=== PATIENT | female | born 1930 | race Caucasian/White ===

== ENCOUNTER 2017-02-06 06:40 | Emergency (ER) | payer OTHER ==
[~2017-02-06] VITALS: Ht 167.6 cm; Wt 72.6 kg
[2017-02-06 06:40] VITALS: BP 124/55
--- NOTE | 2017-02-06 06:40 | NUR ---
BROUGHT IN BY [facility]ED[facility] FROM [facility] ON FULL ARREST. CPR ON GOING. PLACED IN BED 3. MD AT BEDSIDE TO EVALUATE PT. SEE CODE SHEET.
--- NOTE | 2017-02-06 06:40 | NUR ---
[facility] TO ER BED 3
--- NOTE | 2017-02-06 06:52 | NUR ---
CPR TERMINATED. PT. PRONOUNCED BY . ASYSTOLE ON THE WRAPPER LAYER AND EXAMINER SOFT WORK. SEE CODE SHEET.
--- NOTE | 2017-02-06 07:23 | NUR ---
ENDORSED CARE TO ISABELLA OWENS.
--- NOTE | 2017-02-06 07:26 | NUR ---
REPORTED TO [facility] AND SPOKEN TO [facility], AND TO CALL US BACK.
--- NOTE | 2017-02-06 07:33 | NUR ---
REPORTED TO [facility] AND SPOKEN TO [facility] AND CLOSED THE CASE WITH A CASE #[phone].
--- NOTE | 2017-02-06 07:41 | NUR ---
[facility] CALLED BACK , AND SPOKEN TO DEPUTHardeep REYNA AND SHE RELEASES THE BODY WITH CASE #[id number].
--- NOTE | 2017-02-06 08:25 | NUR ---
SPOKE W/ GRAYSON AT DR. [facility]'S OFFICE; GRAYSON STATED WILL LET THE DR KNOW ABOUT PT'S STATUS.
--- NOTE | 2017-02-06 08:40 | NUR ---
SPOKE WITH DAUGHTER MARIANN, [facility] WILL CALL [facility] TO RELEASE PT TO MORTUARY.
--- NOTE | 2017-02-06 09:26 | NUR ---
PT TRANSFERRED VIA [facility] BY CHARGE NURSE EMILY AND EMT CHLOE TO ROOM 126 AT THIS TIME.
--- NOTE | 2017-02-06 11:46 | NUR ---
PT RELEASED TO [facility] AT THIS TIME; PAPERWORK SIGNED AND COMPLETE.
== END 2017-02-06 06:52 | disposition expired ==
LOC: MED 06:40
DX: I46.9 Cardiac arrest, cause unspecified (principal); R11.10 Vomiting, unspecified
CPT/HCPCS: 31500; 92950; 99285